=== PATIENT | female | born 1955 | race Caucasian/White ===

== ENCOUNTER 2018-05-31 10:09 | Emergency (ER) | payer SELFPAY ==
[~2018-05-31] VITALS: Ht 154.9 cm; Wt 54.0 kg
[2018-05-31 10:34] VITALS: BP 141/96
== END 2018-05-31 11:45 | disposition home or self-care (01) ==
LOC: ER 10:09
DX: F41.9 Anxiety disorder, unspecified (principal); F12.90 Cannabis use, unspecified, uncomplicated; E78.00 Pure hypercholesterolemia, unspecified; E03.9 Hypothyroidism, unspecified; G89.29 Other chronic pain
CPT/HCPCS: 99284